=== PATIENT | female | born 1995 | race African-American/Black ===

== ENCOUNTER 2021-03-04 18:38 | Emergency (ER) | payer BC, SELFPAY ==
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
[2021-03-04 19:44] VITALS: BP 130/89; PULSE 93; RESP 16; TEMP 37.3; O2SAT 98; BMI 23.5
[2021-03-04 20:09] LABS: COVID-19 Test Positive (Negative)
--- NOTE | 2021-03-04 20:20 | PC.NURSE ---
at bedside for primary eval. MD and marketing consultant notified that pt is Covid +.
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
--- NOTE | 2021-03-04 20:32 | PC.NURSE ---
Pt ambulating to CT with a steady gait.
--- NOTE | 2021-03-04 20:41 | PC.NURSE ---
VS updated at this time. Pt requesting an RX for her HTN. RICCI Brock to discuss with Provider.
[2021-03-04 22:26] VITALS: BP 130/70; PULSE 91; RESP 16; O2SAT 98
== END 2021-03-04 22:31 | disposition home or self-care (01) ==
PROVIDERS: Emergency Provider Emergency Medicine
DX: S20.213A Contusion of bilateral front wall of thorax, initial encounter (principal); U07.1 COVID-19; G44.309 Post-traumatic headache, unspecified, not intractable; R07.81 Pleurodynia; Y04.8XXA Assault by other bodily force, initial encounter; Y93.9 Activity, unspecified; Y92.9 Unspecified place or not applicable; Y99.9 Unspecified external cause status
CPT/HCPCS: 36415; 70450; 70486; 71101; 87635; 99284